=== PATIENT | female | born 1965 | race African-American/Black ===

== ENCOUNTER 2018-01-09 12:47 | Emergency (ER) | payer MEDICAID, OTHER ==
[~2018-01-09] VITALS: Ht 160 cm; Wt 83.9 kg
[2018-01-09 13:52] VITALS: BP 142/79
[2018-01-09] MEDS ORDERED: IBUPROFEN 800 MG TAB PO ONE (14:30)
[2018-01-09] MEDS ORDERED: INDOMETHACIN 25 MG CAP PO ONE (14:45)
== END 2018-01-09 17:48 | disposition home or self-care (01) ==
LOC: ER 12:49
DX: M79.674 Pain in right toe(s) (principal); E78.5 Hyperlipidemia, unspecified; I10 Essential (primary) hypertension; F17.210 Nicotine dependence, cigarettes, uncomplicated; Z88.1 Allergy status to other antibiotic agents; Z88.6 Allergy status to analgesic agent; X58.XXXA Exposure to other specified factors, initial encounter; Y93.89 Activity, other specified; Y92.89 Other specified places as the place of occurrence of the external cause; Y99.8 Other external cause status
CPT/HCPCS: 73630

== ENCOUNTER 2018-05-18 17:32 | Emergency (ER) | payer MEDICAID ==
[~2018-05-18] VITALS: Ht 160 cm; Wt 81.6 kg
[2018-05-18 22:46] VITALS: BP 142/89
== END 2018-05-18 22:45 | disposition home or self-care (01) ==
LOC: ER 17:32
DX: M54.41 Lumbago with sciatica, right side (principal); E78.5 Hyperlipidemia, unspecified; I10 Essential (primary) hypertension; F17.210 Nicotine dependence, cigarettes, uncomplicated; Z88.1 Allergy status to other antibiotic agents; Z88.6 Allergy status to analgesic agent
CPT/HCPCS: 72131; 93971

== ENCOUNTER → 2022-03-11 | Outpatient (CLI) | payer MEDICAID | END | disposition home or self-care (01) | LOC: LAB 09:05 | PROVIDERS: ATTEND Internal Medicine Pulmonary Disease | DX: Z01.812 Encounter for preprocedural laboratory examination (principal); Z20.822 Contact with and (suspected) exposure to COVID-19 | CPT/HCPCS: 36415; 87426 ==

== ENCOUNTER → 2022-03-12 | Outpatient (CLI) | payer MEDICAID ==
[~2022-03-12] MED LIST: ALBUTEROL MEDNEB 2.5 mg/3ml NEB ONE
== END | disposition home or self-care (01) ==
LOC: RT 08:48
PROVIDERS: ATTEND Internal Medicine Pulmonary Disease
DX: Z01.818 Encounter for other preprocedural examination (principal)
CPT/HCPCS: 94060; 94727; 94729

== ENCOUNTER 2023-10-29 05:31 | Inpatient (IN) | payer MEDICAID ==
[~2023-10-29] VITALS: Ht 167.6 cm; Wt 71.3 kg
[2023-10-29] VITALS (8 sets, daily range): BP systolic 127–145; BP diastolic 72–79; PULSE 84–103; RESP 11–24; TEMP 97.5–98.1; O2SAT 91–100
[2023-10-29] MEDS: ONDANSETRON HCL 4 MG/2 ML VIAL IV ONE (08:46)
[2023-10-29] MEDS: SODIUM CHLORIDE 0.9% 500 ML IVB ONE (08:46)
[2023-10-29] MEDS: HYDROmorphone HCL 2 MG/ML VL/or syr IV ONE ×2 (08:47→15:05)
[2023-10-29 08:54] LABS: Basophils # (auto) 0 10 ^3/uL (0-0.2); Eosinophils # (auto) 0 10 ^3/uL (0-0.8); Monocytes # (auto) 0.1 10 ^3/uL (0-1.3); Neutrophils # (auto) 2.2 10 ^3/uL (1.6-8.6); Platelet Count (auto) 50 10^3/uL (140-450)
[2023-10-29 08:57] LABS: Basophils % (auto) 0.7 % (0.0-2.0); Eosinophils % (auto) 0.4 % (0.0-7.0); Hematocrit 19.3 % (36.0-46.0); Lymphocytes # (auto) 0.7 10 ^3/uL (0.4-5.4); Lymphocytes % (auto) 24.7 % (10.0-50.0); Mean Corpuscular Hemoglobin 26.6 pg (28.0-32.0); Mean Corpuscular Volume 85.9 fL (80.0-100.0); Monocytes % (auto) 2.2 % (0.0-12.0); Nucleated Red Blood Cells % 0.2 %; Red Blood Cells 2.25 10^6/uL (4.0-5.20); Red Cell Distribution Width 20.1 % (11.8-14.3)
[2023-10-29 09:11] LABS: INR 1.27 (0.9-1.15); Partial Thromboplastin Time 32.8 SEC (24.5-34.5); Prothrombin Time 13.2 sec (9.3-11.8)
[2023-10-29 09:14] LABS: Alanine Aminotransferase 26 U/L (7-40); Alkaline Phosphatase 375 U/L (46-116); Calcium 9.3 mg/dL (8.7-10.4); Chloride 98 mmol/L (98-107)
[2023-10-29 09:15] LABS: Anion Gap 7 (5-15); Aspartate Aminotransferase 55 U/L (13-40); BUN/Creatinine Ratio 24.1 (10.0-20.0); Bilirubin, Total 0.7 mg/dL (0.2-1.0); Blood Urea Nitrogen 14 mg/dL (9-23); Carbon Dioxide 28 mmol/L (20-30); Glucose 116 mg/dL (74-106); Lipase 25 U/L (12-53); Magnesium 1.5 mg/dL (1.6-2.6); Potassium 3.7 mmol/L (3.5-5.1); Sodium 133 mmol/L (136-145); Total Protein 5.9 g/dL (5.7-8.2)
[2023-10-29] MEDS: SODIUM CHLORIDE 0.9% 1,000 ML IV ONE (09:20)
[2023-10-29 09:28] LABS: Anisocytosis Slight; Hypochromia Slight; Ovalocytes FEW; Platelet Estimate Decreased
[2023-10-29] MEDS: IOHEXOL 300 MG/ML 100ML BOTTLE IJ ONE (09:46)
[2023-10-29] MEDS: cefTRIAXone 1GM/50ML D5W 50 ML IV ONE (11:39)
[2023-10-29 11:46] LABS: Urine Bacteria FEW /hpf (None Seen); Urine Blood Negative /uL (Negative); Urine Clarity Clear (Clear); Urine Color Yellow (Yellow); Urine Protein, UAD TRACE (Negative); Urine Specific Gravity 1.049 (1.001-1.035); Urine Urobilinogen Normal (Negative); Urine WBC 2 /hpf (0 - 5)
[2023-10-29] MEDS: MAGNESIUM SULFATE 1GM/100ML 100 ML IV SCH (12:29)
[2023-10-29] MEDS ORDERED: DOCUSATE SOD 100 MG CAP PO PRN (13:15)
[2023-10-29] MEDS ORDERED: NITROGLYCERIN 0.4 MG SL TAB SL PRN (13:15)
[2023-10-29] MEDS: SODIUM CHLORIDE 0.9% 1,000 ML IV SCH (15:13)
[2023-10-29] MEDS: LACTULOSE 20Gm/30ML SOLN PO ONE (15:18)
[2023-10-29] MEDS: PIPERACILLIN-TAZOB 3.375GM 100 ML IV ONE (15:45)
[2023-10-29] MEDS: HYDROmorphone HCL 2 MG/ML VL/or syr IV PRN (20:17)
[2023-10-29 20:31] LABS: Hematocrit 23.9 % (36.0-46.0); Hemoglobin 7.3 g/dL (12.2-16.2)
[2023-10-29] MEDS: PIPERACILLIN-TAZOB 3.375GM 100 ML IV SCH (23:45)
[2023-10-30] VITALS (9 sets, daily range): BP systolic 115–150; BP diastolic 59–76; PULSE 82–93; RESP 19–21; TEMP 97.6–98.8; O2SAT 95–99
[2023-10-30] MEDS: LACTULOSE 20Gm/30ML SOLN PO SCH
[2023-10-30] MEDS: ONDANSETRON HCL 4 MG/2 ML VIAL IV PRN (11:58)
[2023-10-30 13:01] LABS: Hematocrit 23.9 % (36.0-46.0); Red Cell Distribution Width 18.4 % (11.8-14.3)
[2023-10-30 13:03] LABS: Hemoglobin 7.6 g/dL (12.2-16.2); Mean Corpuscular Hemoglobin 28.2 pg (28.0-32.0); Mean Corpuscular Hgb Conc. 31.9 g/dL (32.0-36.0); Mean Corpuscular Volume 88.5 fL (80.0-100.0)
[2023-10-30 13:20] LABS: Alanine Aminotransferase 20 U/L (7-40); Alkaline Phosphatase 356 U/L (46-116); Anion Gap 2 (5-15); Aspartate Aminotransferase 35 U/L (13-40); BUN/Creatinine Ratio 21.2 (10.0-20.0); Blood Urea Nitrogen 11 mg/dL (9-23); Carbon Dioxide 30 mmol/L (20-30); Chloride 101 mmol/L (98-107); Glucose 125 mg/dL (74-106); Potassium 3.3 mmol/L (3.5-5.1); Sodium 133 mmol/L (136-145); White Blood Cell 1.8 10^3/uL (4.4-10.8)
[2023-10-30 13:21] LABS: Albumin 2.7 g/dL (3.2-4.8); Bilirubin, Total 0.9 mg/dL (0.2-1.0); Total Protein 5.3 g/dL (5.7-8.2)
[2023-10-30 13:22] LABS: Band Neutrophils % (manual) 0; Basophils % (manual) 0 (0.0-2.0); Blast Cells 0; Metamyelocytes % 0; Monocytes % (manual) 0 (0-12); Myelocytes % 0; Promyelocytes % 0; Reactive Lymphocytes 0
[2023-10-30 13:42] LABS: Platelet Count (auto) 36 10^3/uL (140-450)
[2023-10-30 13:43] LABS: Eosinophils % (manual) 1 (0-7); Lymphocytes % (manual) 28 (10.0-50.0)
[2023-10-30 13:44] LABS: Platelet Estimate Decreased
[2023-10-30] MEDS: POTASSIUM EFFERVESENT TAB 25 MEQ GT ONE (16:00)
[2023-10-30] MEDS ORDERED: IPRATROPIUM BROM 0.5 MG/2.5ML INH SOL NEB PRN (23:45)
[2023-10-30] MEDS ORDERED: ALBUTEROL SULF 2.5 MG/0.5ML(0.5%) NEB SOLN NEB PRN (23:45)
[2023-10-31] VITALS (8 sets, daily range): BP systolic 104–144; BP diastolic 65–79; PULSE 63–111; RESP 16–20; TEMP 97.3–98.4; O2SAT 95–100
[2023-10-31] MEDS: MAGNESIUM SULFATE 1GM/100ML 100 ML IV ONE (01:51)
[2023-10-31] MEDS: Ensure HIGH Protein Chocolate 8oz Bottle PO SCH (08:00)
[2023-10-31 10:50] LABS: Alanine Aminotransferase 22 U/L (7-40); Albumin 2.9 g/dL (3.2-4.8); Alkaline Phosphatase 404 U/L (46-116); Anion Gap 5 (5-15); Aspartate Aminotransferase 49 U/L (13-40); BUN/Creatinine Ratio 13.3 (10.0-20.0); Blood Urea Nitrogen 8 mg/dL (9-23); Calcium 9.4 mg/dL (8.7-10.4); Carbon Dioxide 26 mmol/L (20-30); Chloride 99 mmol/L (98-107); Glucose 145 mg/dL (74-106); Magnesium 2.2 mg/dL (1.6-2.6); Potassium 3.9 mmol/L (3.5-5.1); Sodium 130 mmol/L (136-145)
[2023-10-31 10:51] LABS: Bilirubin, Total 0.9 mg/dL (0.2-1.0); Total Protein 6.1 g/dL (5.7-8.2)
[2023-10-31] MEDS: FUROSEMIDE 40 MG/4 ML VIAL IV ONE (18:56)
[2023-10-31] MEDS: POTASSIUM CHL 20 Meq TABLET PO ONE (18:57)
[2023-10-31 18:59] LABS: Basophils # (auto) 0 10 ^3/uL (0-0.2); Eosinophils # (auto) 0 10 ^3/uL (0-0.8); Eosinophils % (auto) 2.2 % (0.0-7.0); Hemoglobin 7.5 g/dL (12.2-16.2); Lymphocytes # (auto) 0.7 10 ^3/uL (0.4-5.4); Monocytes # (auto) 0 10 ^3/uL (0-1.3); Neutrophils # (auto) 0.6 10 ^3/uL (1.6-8.6)
[2023-10-31 19:01] LABS: Basophils % (auto) 0.7 % (0.0-2.0); Hematocrit 23.7 % (36.0-46.0); Lymphocytes % (auto) 51.8 % (10.0-50.0); Mean Corpuscular Hgb Conc. 31.9 g/dL (32.0-36.0); Mean Corpuscular Volume 87.9 fL (80.0-100.0); Monocytes % (auto) 0.7 % (0.0-12.0); Neutrophils % (auto) 44.6 % (37.0-80.0); Nucleated Red Blood Cells % 0.2 %; Red Blood Cells 2.69 10^6/uL (4.0-5.20)
[2023-10-31 19:37] LABS: White Blood Cell 1.4 10^3/uL (4.4-10.8)
[2023-10-31 19:48] LABS: Platelet Count (auto) 9 10^3/uL (140-450)
[2023-10-31 19:49] LABS: Anisocytosis Slight; Platelet Estimate Markedly Decreased
[2023-10-31] MEDS: MORPHINE SULFATE INJ 2 MG/ml SYRG IV PRN (23:23)
[2023-11-01 01:00] VITALS: BP 109/64; PULSE 107; RESP 17; TEMP 98.7; O2SAT 97
[2023-11-01] MEDS ORDERED: POTASSIUM CHL 20 Meq TABLET PO SCH (10:00)
[2023-11-01] MEDS ORDERED: FUROSEMIDE 40 MG/4 ML VIAL IV SCH (10:00)
== END 2023-11-01 02:55 | disposition left against medical advice (07) | DRG 254 ==
LOC: EDBD 05:31 → ER 05:41 → OVERFLOW 13:09 → WEST WING 18:35
PROVIDERS: ADMIT Internal Medicine; ATTEND Internal Medicine
PROC: 30233N1 Transfusion of Nonautologous Red Blood Cells into Peripheral Vein, Percutaneous Approach (ICD-10-PCS; principal; 2023-10-29)
PROC: 05HA33Z Insertion of Infusion Device into Left Brachial Vein, Percutaneous Approach (ICD-10-PCS; 2023-10-29)
PROC: B54NZZA Ultrasonography of Left Upper Extremity Veins, Guidance (ICD-10-PCS; 2023-10-29)
PROC: 05H933Z Insertion of Infusion Device into Right Brachial Vein, Percutaneous Approach (ICD-10-PCS; 2023-10-29)
PROC: B54MZZA Ultrasonography of Right Upper Extremity Veins, Guidance (ICD-10-PCS; 2023-10-29)
PROC: 05H933Z Insertion of Infusion Device into Right Brachial Vein, Percutaneous Approach (ICD-10-PCS; 2023-10-30)
PROC: B54MZZA Ultrasonography of Right Upper Extremity Veins, Guidance (ICD-10-PCS; 2023-10-30)
DX: K59.00 Constipation, unspecified (principal); J96.01 Acute respiratory failure with hypoxia; I21.A1 Myocardial infarction type 2; D61.810 Antineoplastic chemotherapy induced pancytopenia; C78.89 Secondary malignant neoplasm of other digestive organs; E44.0 Moderate protein-calorie malnutrition; C34.90 Malignant neoplasm of unspecified part of unspecified bronchus or lung; D62 Acute posthemorrhagic anemia; E87.1 Hypo-osmolality and hyponatremia; C78.7 Secondary malignant neoplasm of liver and intrahepatic bile duct; G89.3 Neoplasm related pain (acute) (chronic); J44.9 Chronic obstructive pulmonary disease, unspecified; Z53.29 Procedure and treatment not carried out because of patient's decision for other reasons; E78.5 Hyperlipidemia, unspecified; E83.42 Hypomagnesemia; I10 Essential (primary) hypertension; E87.6 Hypokalemia; F17.210 Nicotine dependence, cigarettes, uncomplicated; T45.1X5A Adverse effect of antineoplastic and immunosuppressive drugs, initial encounter; Z88.6 Allergy status to analgesic agent; Z88.1 Allergy status to other antibiotic agents; Z68.25 Body mass index [BMI] 25.0-25.9, adult; Y92.89 Other specified places as the place of occurrence of the external cause; R10.30 Lower abdominal pain, unspecified
CPT/HCPCS: 36415; 71045; 74177; 80053; 81001; 83690; 83735; 84484; 85007; 85014; 85018; 85025; 85027; 85610; 85730; 86850; 86900; 86901; 86920; 93005; 96361; 96374; 96375; 97163; 99291; G0378; J2405; J2543